=== PATIENT | female | born 1975 | race Caucasian/White ===

== ENCOUNTER → 2018-08-17 | Outpatient (CLI) | payer BC ==
[~2018-08-17] MED LIST: CEP500 PO; ETHI1TAB26 PO; HYDR-3078 PO
--- NOTE | 2018-08-17 15:47 | RADIOLOGY IMAGING REPORT ---
FACILITY: [facility] - [place] PATIENT NAME: SHAUNA MARY : [id number] MR: [id number] V: [id number] EXAM DATE: [id number] ORDERING PHYSICIAN: NICOLE JAMESON TECHNOLOGIST: Melissa Mendes PROCEDURE:BILATERAL DIGITAL SCREENING MAMMOGRAM WITH CAD ASSISTED INTERPRETATION & 3D TOMOSYNTHESIS COMPARISON:Prior mammogram 07/22/2017. INDICATIONS:SCREENING FINDINGS: Breast tissue is extremely dense. MLO & CC views as well as Right & Left exaggerated lateral views were obtained. Tomosynthesis images were reviewed. There is no suspicious mass, calcification, or architectural distortion. DIAGNOSTIC CATEGORY 1--NEGATIVE. RECOMMENDATIONS: ROUTINE MAMMOGRAM AND CLINICAL EVALUATION. IMPRESSION: BIRADS 1: Negative. No mammographic evidence for malignancy. Dictated by: Nayan Ramos M.D. on 08/17/2018 at 13:20 Transcribed by: VIDAL on 08/17/2018 at 14:22 Approved by: Nayan Ramos M.D. on 08/17/2018 at 15:47 [facility]
== END ==
LOC: MAMO 04:04
PROVIDERS: ATTEND Obstetrics & Gynecology
DX: Z01.419 Encounter for gynecological examination (general) (routine) without abnormal findings (principal)
CPT/HCPCS: 77063; 77067